=== PATIENT | male | born 1955 | race Caucasian/White ===

== ENCOUNTER 2019-03-19 06:01 | Day surgery (SDC) | payer BC ==
[~2019-03-19 06:01] MED LIST: SODIUM CHLORIDE 0.9% 1,000 ML IV SCH
[2019-03-19 06:22] VITALS: TEMP 97.9
[2019-03-19] MEDS ORDERED: SODIUM CHLORIDE 0.9% 500 ML 500 ML IV ONE (06:27)
[2019-03-19] MEDS ORDERED: PROPOFOL 10 MG/ML 20 ML VIAL IV ONE (07:15)
[2019-03-19] MEDS ORDERED: BENZOCAINE SPRAY 1 CAN TOPICAL ONE (07:25)
--- NOTE | 2019-03-19 08:00 | ECHOT ---
TRANSESOPHAGEAL ECHOCARDIOGRAM DATE OF SERVICE: March 19, 2019. PERFORMING PHYSICIAN: Yasmani Yarbrough MD. PROCEDURE PERFORMED: Transesophageal echocardiogram. INDICATION: Rule out intracardiac thrombus for this patient who is going to undergo cardioversion. COMPLICATION: None. LEVEL OF SEDATION: Deep sedation was performed using propofol with CRYPTOLOGIC TECHNICIAN TECHNICAL in the room. PROCEDURE DESCRIPTION: After obtaining an informed consent, the patient was brought to the recovery room. The pulse oximetry and heart rate monitors were attached to the patient. The patient was turned into left lateral position. Subsequently and after the throat was sprayed using lidocaine and the bite guard was placed, we did advance the transesophageal echocardiogram to the mid esophageal where 2D echocardiogram images, continuous as well as pulse-wave Doppler images were obtained. After that, the procedure was completed without any complication. Also, please note that 2D echocardiogram images were obtained. FINDINGS: The left ventricular dimension and systolic function appeared to be within normal limits. The ejection fraction appeared to be in the range of 50% to 55%. The right ventricle appeared to be within normal limits for dimension. The aortic valve appeared to be trileaflet valve without stenosis with mild insufficiency. The mitral valve seems to be mildly thickened with evidence of moderate mitral insufficiency using a quantitative as well as qualitative measurements. The left atrial appendage appeared to be within normal limits. No evidence of left atrial appendage thrombus seen. The tricuspid valve and pulmonic valve appeared to be within normal limits. The left atrium appeared to be severely dilated. CONCLUSION: 1. Normal left atrial appendage without any evidence of thrombus. 2. Intact interatrial septum without any evidence of shunt. 3. Severe left atrial dilatation. 4. Normal left ventricular dimension and systolic function. 5. Normal right ventricular dimension and systolic function. 6. Aortic sclerosis without stenosis with mild insufficiency. 7. Thickened mitral valve leaflets with moderate mitral regurgitation by quantitative and qualitative measurements. 8. Normal tricuspid valve and pulmonic valve. 9. No evidence of pericardial effusion. POSTPROCEDURE MANAGEMENT: Proceed with cardioversion. MMODL / IJN: [id number] /
--- NOTE | 2019-03-19 08:00 | CE ---
CARDIAC ELECTROPHYSIOLOGY REPORT PERFORMING PHYSICIAN: Yasmani Yarbrough MD. PROCEDURE PERFORMED: Cardioversion of atrial fibrillation. INDICATION: Atrial fibrillation. PROCEDURE DESCRIPTION: After transesophageal echocardiogram was performed and intracardiac thrombus was ruled out, we pursued with the cardioversion. The patient cardioverted from atrial fibrillation to normal sinus mechanism using 200 joules on first attempt. CONCLUSION: Successful cardioversion of atrial fibrillation to normal sinus mechanism using 200 joules on first attempt. MMODL / IJN: [id number] /
[2019-03-19 08:26] VITALS: RESP 16
[2019-03-19 09:10] VITALS: BP 116/81; PULSE 58
== END 2019-03-19 09:21 | disposition home or self-care (01) ==
LOC: CATHCVL 06:01
PROVIDERS: ATTEND Internal Medicine Interventional Cardiology
DX: I48.0 Paroxysmal atrial fibrillation (principal); I34.0 Nonrheumatic mitral (valve) insufficiency; I50.9 Heart failure, unspecified; Z79.01 Long term (current) use of anticoagulants; Z79.899 Other long term (current) drug therapy; Z90.49 Acquired absence of other specified parts of digestive tract
CPT/HCPCS: 93312; 93320; 93325; 92960; J2704

== ENCOUNTER 2022-08-27 06:02 | Day surgery (SDC) | payer BC ==
[2022-08-20 14:35] VITALS: BMI 27.7
[2022-08-27] MEDS ORDERED: LACTATED RINGERS 1,000 ML IV SCH (06:42)
[2022-08-27 06:45] VITALS: TEMP 96.9
[2022-08-27] MEDS ORDERED: PROPOFOL 10 MG/ML 20 ML VIAL IV ONE (07:29)
--- NOTE | 2022-08-27 07:42 | P.PCN ---
Date of Procedure: 08/27/22 Operative Findings: Cardioversion Report Performing physician Yasmani Yarbrough M.D. Procedure performed Successful cardioversion of atrial fibrillation to normal sinus mechanism using 200 J at first attempt Indication Symptomatic atrial fibrillation Complication None Level of sedation The procedure was performed under deep sedation using propofol with DERMATOLOGY NURSE PRACTITIONER in the room Procedure description After obtaining an informed consent the patient was brought to the recovery room. Sedation was introduced using propofol with DERMATOLOGY NURSE PRACTITIONER in the room. Subsequently the patient cardioverted from atrial fibrillation to normal sinus mechanism using 200 J and first attempt Conclusion Successful cardioversion of atrial fibrillation to normal sinus mechanism using 200 J Postprocedure management Continue the current medical regimen Continue oral anticoagulation Follow-up with the patient
[2022-08-27 08:09] VITALS: RESP 16
[2022-08-27 09:05] VITALS: BP 147/92; PULSE 47
== END 2022-08-27 09:23 | disposition home or self-care (01) ==
LOC: OR 06:02
PROVIDERS: ATTEND Internal Medicine Interventional Cardiology
DX: I48.19 Other persistent atrial fibrillation (principal); I08.0 Rheumatic disorders of both mitral and aortic valves; I42.9 Cardiomyopathy, unspecified; K21.9 Gastro-esophageal reflux disease without esophagitis; Z79.01 Long term (current) use of anticoagulants; Z79.899 Other long term (current) drug therapy; Z88.2 Allergy status to sulfonamides; Z88.6 Allergy status to analgesic agent; Z91.048 Other nonmedicinal substance allergy status
CPT/HCPCS: 92960; J2704